=== PATIENT | male | born 1985 | race American Indian/Alaskan Native ===

== ENCOUNTER 2018-04-29 12:39 | Emergency (ER) | payer SELFPAY | END 2018-04-29 12:49 | disposition left against medical advice (07) | LOC: ED 12:39 ==

== ENCOUNTER 2018-04-30 20:30 | Emergency (ER) | payer SELFPAY ==
[2018-04-30 20:59] VITALS: BP 119/75
--- NOTE | 2018-04-30 21:08 | Emergency Department Report ---
Blank Doc - Documentation Documentation: This is a 32-year-old male that presents with lower back pain x1 month. Stated got up at home and started to have sharp pain. This initial assessment/diagnostic orders/clinical plan/treatment(s) is/are subject to change based on patient's health status, clinical progression and re- assessment by fellow clinical providers in the ED. Further treatment and workup at subsequent clinical providers discretion. Patient/guardians urged not to elope from the ED as their condition may be serious if not clinically assessed and managed. Initial orders include: 1- Patient sent to [facility] for further evaluation and treatment
[2018-05-01 01:29] LABS: Basophils % (Auto) 0.2 % (0.0-1.8); Eosinophils # (Auto) 0.1 K/mm3 (0.0-0.4); Eosinophils % (Auto) 2.6 % (0.0-4.3); Hematocrit 46.7 % (35.5-45.6); Hemoglobin 15.8 gm/dl (11.8-15.2); Lymphocytes # (Auto) 2.3 K/mm3 (1.2-5.4); Mean Corpuscular HGB Conc 34 % (32-34); Mean Corpuscular Volume 90 fl (84-94); Monocytes # (Auto) 0.4 K/mm3 (0.0-0.8); Monocytes % (Auto) 8.2 % (0.0-7.3); Platelet Count 217 K/mm3 (140-440); Red Blood Count 5.18 M/mm3 (3.65-5.03); Red Cell Distribution Width 13.9 % (13.2-15.2)
[2018-05-01 01:30] LABS: BUN/Creatinine Ratio 9; Blood Urea Nitrogen 9 mg/dL (9-20); Calcium 8.9 mg/dL (8.4-10.2); Hemolysis Index 25
--- NOTE | 2018-05-01 05:07 | Emergency Department Report ---
<JAMES LINDER - Last Filed: 05/01/18 05:04> ED General Adult HPI - General Chief complaint: Back Pain/Injury Stated complaint: SIDE AND BACK PAIN Time Seen by Provider: 04/30/18 21:07 Source: patient Mode of arrival: Ambulatory Limitations: No Limitations - History of Present Illness Initial comments: 32-year-old [place] male to emergency Department complaining of left flank and back pain with no dysuria, hematuria, nausea, vomiting,, diarrhea or constipation. There is negative a made made him off and on for the past. Therefore weeks. Does not palliative factors but is worse with certain positions or palpitations. He reports no known travel. Reports no known no chest pain,no shortness of breath, no fever, chills, sweats. -: Gradual Location: back, abdomen Radiation: back Severity scale (0 -10): 9 Quality: sharp, dull Consistency: constant Improves with: none Worsens with: movement Associated Symptoms: denies: confusion, cough, diaphoresis, malaise, nausea/vomiting, syncope, weakness - Related Data Previous Rx's Medication Instructions Recorded Last Taken Type Doxycycline Hyclate [Doxycycline 100 mg PO Q12HR 10 Days #20 tab 05/01/18 Unknown Rx Hyclate TAB] Allergies Allergy/AdvReac Type Severity Reaction Status Date / Time No Known Allergies Allergy Unverified 04/29/18 12:43 ED Review of Systems Constitutional: denies: chills, fever Eyes: denies: eye pain, eye discharge, vision change ENT: denies: ear pain, throat pain Respiratory: denies: cough, shortness of breath, wheezing Cardiovascular: denies: chest pain, palpitations Endocrine: no symptoms reported Gastrointestinal: denies: abdominal pain, nausea, diarrhea Genitourinary: denies: urgency, dysuria Musculoskeletal: denies: back pain, joint swelling, arthralgia Skin: denies: rash, lesions Neurological: denies: headache, weakness, paresthesias Psychiatric: denies: anxiety, depression Hematological/Lymphatic: denies: easy bleeding, easy bruising ED Past Medical Hx - Past Medical History Previous Medical History?: No - Surgical History Past Surgical History?: No - Social History Smoking Status: Former Smoker Substance Use Type: None - Medications Home Medications: Home Medications Medication Instructions Recorded Confirmed Last Taken Type Doxycycline Hyclate [Doxycycline 100 mg PO Q12HR 10 Days #20 tab 05/01/18 Unknown Rx Hyclate TAB] ED Physical Exam - General Limitations: No Limitations General appearance: alert, in no apparent distress - Head Head exam: Present: atraumatic, normocephalic - Eye Eye exam: Present: normal appearance - ENT ENT exam: Present: mucous membranes moist - Neck Neck exam: Present: normal inspection - Respiratory Respiratory exam: Present: normal lung sounds bilaterally. Absent: respiratory distress - Cardiovascular Cardiovascular Exam: Present: regular rate, normal rhythm. Absent: systolic murmur, diastolic murmur, rubs, gallop - GI/Abdominal GI/Abdominal exam: Present: soft, tenderness (significant discomfort to his left lower quadrant with palpation. No CVA tenderness. No distention. Abdomen is not rigid. Bowel sounds are positive), normal bowel sounds - Rectal Rectal exam: Present: deferred - Extremities Exam Extremities exam: Present: normal inspection - Back Exam Back exam: Present: normal inspection - Neurological Exam Neurological exam: Present: alert, oriented X3 - Psychiatric Psychiatric exam: Present: normal affect, normal mood - Skin Skin exam: Present: warm, dry, intact, normal color. 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 I recommend proceed to follow-up with the health Department for STD checkup. Tylenol or Motrin for pain management. Prescriptions: Doxycycline Hyclate [Doxycycline Hyclate TAB] 100 mg PO Q12HR 10 Days #20 tab Referrals: JENNY ERWIN MD [Primary Care Provider] - 3-5 Days [facility] [Outside] - 3-5 Days [facility] [Outside] - 3-5 Days [facility] [Outside] - 3-5 Days Forms: Work/School Release Form(ED) <HERMES RAMIREZ - Last Filed: 05/01/18 06:14> ED Review of Systems ROS: Stated complaint: SIDE AND BACK PAIN Other details as noted in HPI ED Course Vital Signs 04/30/18 20:58 Temperature 97.8 F Pulse Rate 77 Respiratory 18 Rate Blood Pressure 119/75 O2 Sat by Pulse 98 Oximetry ED Medical Decision Making - Lab Data Result diagrams: 05/01/18 01:06 05/01/18 01:06 Critical care attestation.: If time is entered above; I have spent that time in minutes in the direct care of this critically ill patient, excluding procedure time. ED Disposition Is pt being admited?: No Does the pt Need Aspirin: No
--- NOTE | 2018-05-01 05:40 | Cat Scan Report ---
PROCEDURE: CT ABDOMEN PELVIS W CON TECHNIQUE: CT imaging is obtained through the abdomen and pelvis in venous and delayed phases follow ing intravenous administration of contrast. Transaxial, coronal and sagittal reformations are provide d. HISTORY: Lower ABD Pain COMPARISONS: None FINDINGS: Partially visualized intrathoracic contents are unremarkable. The liver, gallbladder, pancreas, spleen, and adrenal glands are unremarkable. Kidneys show no worrisome lesions, hydronephrosis, or calculi. Urinary bladder is unremarkable. Promi nence of the seminal vesicles. Trace free fluid in the pelvis. Small and large bowel are normal in caliber. Appendix is normal. No free air, or focal fluid collecti on to suggest abscess, or lymphadenopathy identified. Aorta is normal in course and caliber. Superficial soft tissues are unremarkable. No acute or aggressive appearing skeletal findings. IMPRESSION: Prominence of the seminal vesicles and trace free fluid in the pelvis may be due to infection. Clinic al correlation is requested. No other potentially acute findings are identified in the abdomen or pel vis. This document is electronically signed by Link Khan MD., May 01 2018 05:38:12 AM ET
== END 2018-05-01 06:10 | disposition home or self-care (01) ==
LOC: ED 20:30
DX: N49.0 Inflammatory disorders of seminal vesicle (principal); Z87.891 Personal history of nicotine dependence
CPT/HCPCS: 36415; 74177; 80048; 85025; 99284; Q9967